=== PATIENT | female | born 1940 ===

== ENCOUNTER → 2021-11-23 12:37 | Outpatient (BNVA) | payer MEDICARE, SELFPAY | PROVIDERS: Visit Provider Internal Medicine | DX: M25.50 Pain in unspecified joint (principal); R60.9 Edema, unspecified; R53.81 Other malaise; Z11.59 Encounter for screening for other viral diseases | CPT/HCPCS: 36415; 72100; 73120; 80053; 82550; 82607; 83735; 84100; 84443; 85025; 85651; 86140; 86160; 86162; 86200; 86235; 86255; 86376; 86704; 86803; 87340; 99204 ==

== ENCOUNTER → 2022-01-04 15:40 | Outpatient (BNVA) | payer MEDICARE, SELFPAY | PROVIDERS: PCP Family Medicine; Visit Provider Internal Medicine | DX: M47.814 Spondylosis without myelopathy or radiculopathy, thoracic region (principal); R60.9 Edema, unspecified; M19.90 Unspecified osteoarthritis, unspecified site; R53.81 Other malaise | CPT/HCPCS: 72040; 72072; 82550; 82607; 83735; 84100; 84182; 86235; 86480; 99214 ==